=== PATIENT | male | born 1950 | race Caucasian/White ===

== ENCOUNTER 2016-09-02 20:00 | Emergency (ER) | payer BC, MEDICARE ==
--- NOTE | 2016-09-03 09:44 | ER ---
Date of Service: 09/02/2016 SUBJECTIVE: Souleymane presents to the emergency room with complaints of laceration to the tip of his nose. The patient states that he was using an angle diamond grinder when the blade broke and subsequently shattered. A piece of the blade hit the patient on the tip of the nose and caused a small superficial laceration. The patient states that he did not have a loss of consciousness and denies any injury other than was isolated to the tip of his nose. REVIEW OF SYSTEMS: Denies any other trauma other than what is isolated to the tip of his nose. PHYSICAL EXAMINATION: General: This is a 66-year-old male patient, in no acute distress. HEENT: The patient has approximately 1.5 cm superficial laceration to the tip of his nose. There is no retained foreign material. Again, it is a very superficial laceration. No obvious other head or facial trauma noted. Remainder of his physical examination is within normal limits. ASSESSMENT: A 2 cm superficial laceration to the tip of nose. PLAN: The patient will be discharged. The laceration was cleansed with Shur- Clens and normal saline. The laceration was closed with Dermabond. I will have him follow up in the clinic if there is any redness, swelling, or discharge from the area. All questions were answered. MWK: 09/03/2016 06:49:05 MODL: 09/03/2016 07:27:32 /[id number]
== END 2016-09-02 20:48 | disposition home or self-care (01) ==
LOC: VM.ED 20:00
CPT/HCPCS: 12011; 99282

== ENCOUNTER 2022-02-01 21:59 | Emergency (ER) | payer BC, MEDICARE ==
[2022-02-01] MEDS ORDERED: Sodium Chloride 0.9% 10 ML Syringe FLUSH PRN (22:00)
[2022-02-01] MEDS: EPINEPHrine 1 MG/1 ML Amp IM ONE (22:25)
[2022-02-01] MEDS: Sodium Chloride 0.9% 1,000 ML IV ONE (22:28)
[2022-02-01] MEDS: methylPREDNISolone Sodium Succinate 125 MG/2 ML SDV IVPUSH ONE (22:30)
[2022-02-01] MEDS: Pantoprazole 40 MG Vial IVPUSH ONE (22:35)
[2022-02-01] MEDS: diphenhydrAMINE 50 MG/ML SDV IVPUSH ONE (22:37)
[2022-02-02 02:28] VITALS: BP 131/59; PULSE 70
== END 2022-02-02 00:10 | disposition home or self-care (01) ==
LOC: VM.ED 21:59
DX: T63.441A Toxic effect of venom of bees, accidental (unintentional), initial encounter (principal); I10 Essential (primary) hypertension; M19.90 Unspecified osteoarthritis, unspecified site; Z88.8 Allergy status to other drugs, medicaments and biological substances; Z79.82 Long term (current) use of aspirin; Z79.899 Other long term (current) drug therapy
CPT/HCPCS: 96361; 96372; 96374; 96375; 99283; 99283-25; C9113; J0171; J1200; J2930; J7030

== ENCOUNTER 2025-04-29 12:40 | Emergency (ER) | payer MEDICARE, BC ==
[2025-04-29 13:11] LABS: BASOPHILS ABSOLUTE AUTO 0.1 x10^3/uL (0.0-0.2); BASOPHILS PERCENT AUTO 0.3 % (0.2-1.2); EOSINOPHILS ABSOLUTE AUTO 0.0 x10^3/uL (0.0-0.5); EOSINOPHILS PERCENT AUTO 0.2 % (0.0-4.0); IMMATURE GRAN ABSOLUTE AUTO 0.06 x10^3/uL (0.00-0.07); IMMATURE GRAN PERCENT AUTO 0.40 % (0.00-0.43); LYMPHOCYTES ABSOLUTE AUTO 1.6 x10^3/uL (1.0-4.8); LYMPHOCYTES PERCENT AUTO 10.0 % (25.0-50.0); MONOCYTES ABSOLUTE AUTO 1.7 x10^3/uL (0.0-0.8); MONOCYTES PERCENT AUTO 10.7 % (2.0-11.0); NEUTROPHILS ABSOLUTE AUTO 12.6 x10^3/uL (1.8-7.7); NEUTROPHILS PERCENT AUTO 78.4 % (50.0-80.0); PLATELET COUNT,PLT 222 x10^3/uL (130-400); RED BLOOD CELL COUNT 4.74 x10^6/uL (4.5-6.0)
[2025-04-29 13:23] LABS: WHITE BLOOD CELL COUNT,WBC 16.0 x10^3/uL (4.0-10.0)
[2025-04-29 13:39] LABS: A/G RATIO 0.94; ALANINE AMINOTRANSFERASE,ALT 25.0 U/L (16-63); ASPARTATE AMNIOTRANSFERASE,AST 14.0 U/L (15-37); BILIRUBIN TOTAL 1.0 mg/dL (0.2-1.0); BLOOD UREA NITROGEN,BUN 18.0 mg/dL (7-18); CARBON DIOXIDE,CO2 27.0 mmol/L (21-32); CHLORIDE,CL 103.0 mmol/L (98-107); CREATININE 1.2 mg/dL (0.70-1.30); EST CRCL DRUG DOSING (CG) 51.46 mL/min; GLUCOSE RANDOM 125.0 mg/dL (70-99); POTASSIUM,K 4.4 mmol/L (3.5-5.1); PROTEIN TOTAL,TP 7.0 g/dL (6.4-8.2); SODIUM,NA 140.0 mmol/L (136-145)
[2025-04-29 13:40] LABS: ESTIMATED GFR 63.0 mL/min (>=60)
[2025-04-29] MEDS ORDERED: Sodium Chloride 0.9% 10 ML Syringe FLUSH PRN (14:14)
[2025-04-29] MEDS: hydrALAZINE 20 MG/ML SDV IVPUSH ONE (14:29)
[2025-04-29] MEDS: Furosemide 40 MG/4 ML VIAL IV ONE (14:42)
[2025-04-29] MEDS: fentaNYL 50 MCG/ML SDV IVPUSH ONE (16:04)
[2025-04-29 16:44] VITALS: BP 187/77; PULSE 52
== END 2025-04-29 16:44 | disposition short-term general hospital (02) ==
LOC: VM.ED 12:40
DX: J06.9 Acute upper respiratory infection, unspecified (principal); I13.0 Hypertensive heart and chronic kidney disease with heart failure and stage 1 through stage 4 chronic kidney disease, or unspecified chronic kidney disease; I50.9 Heart failure, unspecified; E66.9 Obesity, unspecified; N18.9 Chronic kidney disease, unspecified; Z88.8 Allergy status to other drugs, medicaments and biological substances; Z91.09 Other allergy status, other than to drugs and biological substances; Z91.030 Bee allergy status; Z79.51 Long term (current) use of inhaled steroids; Z87.891 Personal history of nicotine dependence; Z68.35 Body mass index [BMI] 35.0-35.9, adult
CPT/HCPCS: 36415; 71046; 80053; 83880; 85025; 85379; 86140; 96374; 96375; 99285; J0360; J1938; J3010; 99284